=== PATIENT | male | born 1970 | race African-American/Black ===

== ENCOUNTER 2022-10-02 10:20 | Emergency (ER) | payer OTHER ==
[~2022-10-02] VITALS: Ht 185.4 cm; Wt 113.0 kg
[2022-10-02] MEDS ORDERED: IPRATROPIUM BROMIDE (0.02%) 0.5MG/2.5ML NEB HHN STA (13:25)
[2022-10-02] MEDS ORDERED: ALBUTEROL (0.083%) 2.5MG/3ML NEB HHN STA (13:25)
[2022-10-02] MEDS ORDERED: METHYLPREDNISOLONE SOD SUCC 125 MG/2 ML VIAL IV STA (13:25)
[2022-10-02 14:12] VITALS: BP 144/105
[2022-10-02 14:30] LABS: BASOPHILS % 0.3 % (0.0-2.0); EOSINOPHILS % 0.7 % (0.0-5.0); HEMATOCRIT. 48.5 % (42.0-52.0); HEMOGLOBIN. 16.8 g/dL (14.0-18.0); LYMPHOCYTES % 12.5 % (20.0-50.0); MEAN CORPUSCULAR HEMOGLOBIN 31.3 pg (28.0-32.0); MEAN CORPUSCULAR VOLUME 90.4 fL (80.0-94.0); MEAN PLATELET VOLUME 7.2 fl (7.4-10.4); MONOCYTES % 9.6 % (2.0-8.0); NEUTROPHILS % 76.9 % (40.0-76.0); PLATELET 195 x1000/uL (130-400); RED BLOOD CELL COUNT 5.37 mill/uL (4.7-6.1); RED CELL DISTRIBUTION WIDTH 14.8 % (11.6-14.6)
[2022-10-02 14:36] LABS: CHLORIDE 108 mEq/L (98-107)
[2022-10-02 14:44] LABS: ETHANOL BLOOD < 10 mg/dL (-10)
[2022-10-02 15:43] LABS: *AMPHETAMINES SCREEN URINE NEGATIVE (NEGATIVE); *BARBITURATES SCREEN URINE NEGATIVE (NEGATIVE); *BENZODIAZEPINES SCREEN URINE NEGATIVE (NEGATIVE); *COCAINE SCREEN URINE NEGATIVE (NEGATIVE); CANNABINOID URINE SCREEN PRESUMTIVE POSITIVE (NEGATIVE); METHADONE URINE SCREEN NEGATIVE (NEGATIVE); OPIATES URINE SCREEN NEGATIVE (NEGATIVE); PHENCYCLIDINE URINE SCREEN PRESUMTIVE POSITIVE (NEGATIVE)
[2022-10-02] MEDS ORDERED: P50 MT (16:57)
[2022-10-02] MEDS ORDERED: ALBU6.7H3 INH (16:57)
== END 2022-10-02 17:42 | disposition home or self-care (01) ==
LOC: ER 10:20
DX: J44.1 Chronic obstructive pulmonary disease with (acute) exacerbation (principal); Z88.0 Allergy status to penicillin; Z86.39 Personal history of other endocrine, nutritional and metabolic disease
CPT/HCPCS: 36415; 71045; 80053; 80305; 80320; 83880; 84484; 85025; 93005; 94640; 96374; 99285; J2930; Z7610; G0480

== ENCOUNTER 2024-04-25 11:29 | Emergency (ER) | payer OTHER ==
[~2024-04-25] VITALS: Ht 177.8 cm; Wt 91.0 kg
[~2024-04-25 11:29] MED LIST: ALBU6.7H3 INH; P50 MT
[2024-04-25] MEDS ORDERED: GUAI-450 MT (17:07)
[2024-04-25] MEDS ORDERED: ALBU18HF2 IH (17:07)
[2024-04-25] MEDS: IPRATROPIUM/ALBUTEROL 0.5-3(2.5)MG/3ML NEB HHN ONE (17:13)
[2024-04-25 17:15] VITALS: PULSE 59; RESP 20; O2SAT 95
[2024-04-25] MEDS: PREDNISONE 20MG TABLET PO ONE (17:19)
[2024-04-25 17:20] VITALS: BP 138/78; PULSE 68; RESP 20; TEMP 36.72516; O2SAT 95
== END 2024-04-25 17:40 | disposition home or self-care (01) ==
LOC: ER 11:39
DX: J44.1 Chronic obstructive pulmonary disease with (acute) exacerbation (principal); Z88.0 Allergy status to penicillin; Z86.39 Personal history of other endocrine, nutritional and metabolic disease
CPT/HCPCS: 71045; 94640; 99283; J7512; Z7610 ×3; 94070; 94664